=== PATIENT | female | born 1970 | race Caucasian/White ===

== ENCOUNTER 2024-10-23 12:59 | Day surgery (SDC) | payer BC, OTHER ==
[2024-10-23] MEDS ORDERED: BUPIVACAINE 0.5% VIAL IJ ONE (13:00)
[2024-10-23] MEDS ORDERED: Depo-Medrol 40 MG/ML IM ONE (13:00)
[2024-10-23] MEDS ORDERED: propofoL IV ONE (14:52)
--- NOTE | 2024-10-23 16:30 | XRAY ---
Indication: Left SI joint injection. Intraoperative fluoroscopy provided for 17 seconds. Single digital spot image submitted for interpretation demonstrates posterior needle tip projecting over left SI joint. Small amount of contrast injected for needle tip placement. Correlate with intraoperative findings/report.
--- NOTE | 2024-10-23 16:32 | XRAY ---
17 seconds of fluoroscopy was used in surgery for a left sacroiliac joint injection.
== END 2024-10-23 15:30 | disposition home or self-care (01) ==
LOC: SDC-PAIN 12:59
PROVIDERS: ATTEND Psychiatry & Neurology Pain Medicine
DX: M46.1 Sacroiliitis, not elsewhere classified (principal)
CPT/HCPCS: 72170; 77002; J2704

== ENCOUNTER 2025-01-01 09:49 | Day surgery (SDC) | payer BC, OTHER ==
[2025-01-01] MEDS ORDERED: Depo-Medrol 40 MG/ML IM ONE (09:50)
[2025-01-01] MEDS ORDERED: BUPIVACAINE 0.5% VIAL IJ ONE (09:50)
[2025-01-01] MEDS ORDERED: propofoL IV ONE (12:18)
--- NOTE | 2025-01-01 13:15 | XRAY ---
Indication: Left hip injection. Intraoperative fluoroscopy provided for 16 seconds. 4 digital spot image submitted for interpretation demonstrates needle tip projecting lateral to left femur neck. Small amount of contrast injected for needle tip placement. Correlate with intraoperative findings/report.
--- NOTE | 2025-01-01 13:15 | XRAY ---
16 seconds of fluoroscopy was used in surgery for a left intra-articular hip injection.
== END 2025-01-01 12:52 | disposition home or self-care (01) ==
LOC: SDC-PAIN 09:49
PROVIDERS: ATTEND Psychiatry & Neurology Pain Medicine
DX: M16.12 Unilateral primary osteoarthritis, left hip (principal)
CPT/HCPCS: 20610; 73501; 77002; J2704; Q9966

== ENCOUNTER 2025-07-23 12:00 | Day surgery (SDC) | payer BC, OTHER ==
[2025-07-23] MEDS ORDERED: BUPIVACAINE 0.5% VIAL IJ ONE (12:01)
[2025-07-23] MEDS ORDERED: methylPREDNISolone acetate IM ONE (12:01)
[2025-07-23] MEDS ORDERED: propofoL IV ONE (14:59)
--- NOTE | 2025-07-23 16:32 | XRAY ---
24 seconds of fluoroscopy was used in surgery for a bilateral sacroiliac joint injection.
--- NOTE | 2025-07-23 16:42 | XRAY ---
Indication: Bilateral SI joint injection. Intraoperative fluoroscopy provided for 24 seconds. 2 digital spot image submitted for interpretation demonstrates posterior needle tips projecting over left and right SI joints. Small amount of contrast injected for needle tip placement. Correlate with intraoperative findings/report.
[2025-07-23] MEDS ORDERED: Lactated Ringers 1,000 ML IV ONE (17:05)
== END 2025-07-23 15:25 | disposition home or self-care (01) ==
LOC: SDC-PAIN 12:00
PROVIDERS: ATTEND Psychiatry & Neurology Pain Medicine
DX: M46.1 Sacroiliitis, not elsewhere classified (principal)